=== PATIENT | female | born 1970 | race Caucasian/White ===

== ENCOUNTER 2018-09-20 15:36 | Emergency (ER) | payer MEDICAID | END 2018-09-20 19:46 | disposition home or self-care (01) | LOC: FTE 15:36 | DX: S60.012A Contusion of left thumb without damage to nail, initial encounter (principal); W23.0XXA Caught, crushed, jammed, or pinched between moving objects, initial encounter; Y92.009 Unspecified place in unspecified non-institutional (private) residence as the place of occurrence of the external cause | CPT/HCPCS: 29130; 73140; 81025; 99283-25 ==